=== PATIENT | male | born 1955 | race Caucasian/White ===

== ENCOUNTER 2017-01-09 05:40 | Day surgery (SDC) | payer OTHER ==
[2017-01-08 12:36] VITALS: BMI 26.7
--- NOTE | 2017-01-09 06:13 | HP ---
DATE OF ADMISSION: 01/09/2017 HISTORY OF PRESENT ILLNESS: This is a 61-year-old male with a history of hemorrhoids and rectal bleeding off and on. The patient had a colonoscopy and polypectomy more than 12 years ago. The patient has no specific GI symptoms. The patient comes in for a colonoscopy for colon cancer screening. ALLERGIES: SULFA. SOCIAL HISTORY: The patient does not smoke but drinks alcohol socially. PAST MEDICAL HISTORY: 1. Hypertension. 2. Hyperlipidemia. 3. Osteoarthritis. 4. Colon polyp. 5. Hemorrhoids. PAST SURGICAL HISTORY: 1. Has had a vasectomy. 2. Sinus balloon rhinoplasty. 3. Colon polyp. 4. Previous colonoscopy. PHYSICAL EXAMINATION: VITAL SIGNS: Pulse is 70, blood pressure 130/80. HEENT: Conjunctivae are clear. CARDIOVASCULAR SYSTEM: First and second heart sounds normal. LUNGS: Clear to auscultation. ABDOMEN: Soft to palpate. No organomegaly. No tenderness. No masses. ADMITTING DIAGNOSIS: A 61-year-old male comes for colonoscopy for colon cancer screening. ELMER
--- NOTE | 2017-01-09 09:17 | OP ---
DATE OF PROCEDURE: 01/09/2017 SURGEON: Price Cordon M.D. OPERATIVE PROCEDURE: Colonoscopy. PREOPERATIVE DIAGNOSES: A 61-year-old male with history of colon polyp several years ago. The patient has no specific GI symptoms. He comes for colonoscopy for colon cancer screening. POSTOPERATIVE DIAGNOSES: 1. Sigmoid diverticular disease. 2. Hemorrhoids. PROCEDURE IN DETAIL: The patient was placed on his left lateral position and was given sedation by Anesthesia Department. A rectal exam was done before the scope was advanced into the rectum. No le sions were felt on rectal exam. He does have external hemorrhoids. A Pentax video colonoscope was introduced into the rectum and advanced all the way into the cecum. The prep was excellent. The mu cosa appeared normal throughout the colon with normal vascular pattern. The appendiceal opening, il eocecal valve, and cecum, no pathology seen. The ascending colon, hepatic flexure, transverse colon , and splenic flexure, no pathology seen. The patient predominantly had left-sided diverticular dis ease in the sigmoid colon and also occasional diverticula in the descending colon. Retroflexion of the scope in the rectum showed hemorrhoids. DISCHARGE PLANNING: This is a 61-year-old male who came in for colonoscopy for [facility] and also has history of colon polyp. The colonoscopy showed predominantly left-sided d iverticular disease and hemorrhoids. DISCHARGE RECOMMENDATIONS: 1. High-fiber diet. 2. The patient advised to call me if he develops abdominal pain, hematochezia or fever. 3. Repeat colonoscopy in 10 years.
[2017-01-09] MEDS ORDERED: Propofol 200 MG/20 ML VIAL ONE (12:59)
[2017-01-09] MEDS ORDERED: Lidocaine 1% PF 5 ML VIAL ONE (12:59)
== END 2017-01-09 09:11 | disposition home or self-care (01) ==
LOC: SDC 05:40
PROVIDERS: ATTEND Internal Medicine Gastroenterology
PROC: 0DJD8ZZ Inspection of Lower Intestinal Tract, Via Natural or Artificial Opening Endoscopic (ICD-10-PCS; principal; 2017-01-09)
DX: Z12.11 Encounter for screening for malignant neoplasm of colon (principal); K57.30 Diverticulosis of large intestine without perforation or abscess without bleeding; K64.8 Other hemorrhoids; I10 Essential (primary) hypertension; E78.5 Hyperlipidemia, unspecified; M19.90 Unspecified osteoarthritis, unspecified site; Z88.2 Allergy status to sulfonamides; Z79.899 Other long term (current) drug therapy; Z98.52 Vasectomy status; Z98.890 Other specified postprocedural states; Z87.19 Personal history of other diseases of the digestive system
CPT/HCPCS: J2001; J2704

== ENCOUNTER 2017-03-07 12:49 | Outpatient (CLI) | payer OTHER ==
--- NOTE | 2017-03-07 16:16 | RAD ---
LUMBAR SPINE: 03/07/17 Four views. AP view obtained. Lateral views were obtained in neutral, extension and flexion positions . HISTORY: Lumbar spondylolisthesis. Comparison made to lumbar films of 09/20/16. There is mild anterolisthesis at L4-5 stable from prior exam. Mild degenerative osteophytes in the deandre mbar vertebrae. Mild facet hypertrophy at L4-5 and L5-S1. Disc spaces are relatively well preserved t hroughout and are unchanged. The anterolisthesis at L4-5 appears to exacerbate slightly with flexion. It is unchanged with extension. IMPRESSION: Mild anterolisthesis of L4-5 which appears to exacerbate slightly with flexion. There are degenerativ e changes as described. POS: [facility]
--- NOTE | 2017-03-07 16:58 | MRI ---
MRI LUMBAR SPINE NONCONTRAST: DATE: 03/07/17 HISTORY: 61-year-old male with M43.16 lumbar spondylolisthesis. Chronic low back pain with left lumbar r adiculopathy. COMPARISON: No prior MRIs. FINDINGS: Plain radiographic study from today demonstrates five lumbar type vertebrae inferior to the level wit h hypoplastic ribs which will be designated as T12 for the purposes of this report. There is minimal anterior wedging of L1 and T12. Otherwise, the vertebral body heights are maintained. The spinal gauri l is diffusely small in caliber on a congenital basis due to developmentally short pedicles. No major bone marrow signal abnormality. The L3-4 disc space is preserved, with normal disc signal. There is mild to moderate disc space narrowing at L4-5. There is mild disc space narrowing at all other levels . There are mild disc bulges at all levels. No large disc herniation. Severe bilateral degenerative f acet changes at L4-5. The findings regarding caliber of the spinal canal and neural foramina are as f ollows: T12-L1: No additional findings. L1-2: Conus medullaris terminates at lower L1. No additional findings. L2-3: Moderate central spinal canal stenosis, and a somewhat greater degree of thecal sac stenosis, d ue to mild disc bulge, mild degenerative posterior element hypertrophy, and posterior epidural fat pa d. Mild to moderate left neural foraminal stenosis. Minimal right neural foraminal stenosis. L3-4: Mild central spinal canal stenosis. Mild to moderate thecal sac stenosis due to posterior epidu ral fat pad. Mild to moderate bilateral neural foraminal stenosis. L4-5: The severe facet DJD causes a grade I anterolisthesis of L4 on L5. There is very severe central spinal canal stenosis with severe crowding of cauda equina. There is moderate bilateral neural denny inal stenosis, left worse than right. The lateral recess stenosis is extremely severe on the right an d severe on the left. L5-S1: No central stenosis. Moderate to severe bilateral degenerative facet changes. Bilateral modera te neural foraminal stenosis, less severe than L4-5. IMPRESSION: Very severe central spinal canal stenosis, very severe lateral recess stenosis bilaterally (right wor se than left), and moderate bilateral neural foraminal stenosis, at L4-5, due to a combination of gra de I spondylolisthesis which is due to severe facet osteoarthrosis, posterior element degenerative hy pertrophy, and diffuse disc bulge. MARIANNE Viera POS: [facility]
== END 2017-03-07 12:50 | disposition home or self-care (01) ==
LOC: TBSIIMAG 12:49
PROVIDERS: ATTEND Neurological Surgery
DX: M43.16 Spondylolisthesis, lumbar region (principal); M48.061 Spinal stenosis, lumbar region without neurogenic claudication; M47.26 Other spondylosis with radiculopathy, lumbar region; M51.16 Intervertebral disc disorders with radiculopathy, lumbar region
CPT/HCPCS: 72110; 72148

== ENCOUNTER 2017-03-21 08:07 | Outpatient (CLI) | payer OTHER ==
--- NOTE | 2017-03-21 09:26 | MRI ---
MRI LEFT KNEE WITHOUT CONTRAST: HISTORY: Torn meniscus (M25.562). COMPARISON: None. FINDINGS: Medial meniscus: Undersurface flap tear of the body and posterior horn of the medial meniscus with g utter extrusion of the undersurface flap fragment. Lateral meniscus: Intact. ACL and PCL are intact. MCL and LCL are intact. Extensor mechanism: The quadriceps tendon and patellar tendon are intact. Cartilage: There is a delaminating cartilage tear of the superior aspect of the medial patellar face t, extending to the patellar apex, with some subchondral edema. This measures approximately 6 mm tra nsverse x 9 mm craniocaudad dimension. Medial meniscus: There is a focal full-thickness cartilage defect of the posterior weight-bearing hart rface of the medial femoral condyle. This measures approximately 4 mm in transverse x 15 mm in AP di mension. No significant subchondral edema. Lateral compartment: There are few fissures of the central weightbearing surface of the lateral tibi al plateau, otherwise unremarkable. Muscles: Normal muscle signal and bulk. Soft tissues: No significant popliteal cyst formation. IMPRESSION: 1. Undersurface flap tear of the body and posterior horn medial meniscus with a gutter extrusion 2 m m of a flap fragment. The tear does extend to the posterior root attachment. 2. Focal nodular synovitis along the infrapatellar fat, extending along the anterior margin of the a nterior cruciate ligament. This measures approximately up to 1.5 cm in greatest dimension. 3. Focal area of cartilage delamination along the superior aspect of the medial patellar facet, exte nding to the patellar apex, measuring 6 mm in transverse x 9 mm in craniocaudad dimension. 4. Focal full-thickness cartilage defect, measuring 4 x 15 mm (transverse x AP), of the lateral-most aspect of the weightbearing surface medial femoral condyle. POS: [facility]
== END 2017-03-21 08:08 | disposition home or self-care (01) ==
LOC: TBSIIMAG 08:07
PROVIDERS: ATTEND Orthopaedic Surgery
DX: M25.562 Pain in left knee (principal); S83.242A Other tear of medial meniscus, current injury, left knee, initial encounter; M65.88 Other synovitis and tenosynovitis, other site; M24.10 Other articular cartilage disorders, unspecified site

== ENCOUNTER 2017-05-30 06:02 | Day surgery (SDC) | payer OTHER ==
[2017-05-29 08:58] VITALS: BMI 26.9
[2017-05-30] MEDS ORDERED: Midazolam HCl 2 mg/2 ml Vial ONE (06:24)
[2017-05-30] MEDS ORDERED: HYDROmorphone 0.5 MG/0.5 ML SYRINGE ONE (06:24)
[2017-05-30] MEDS ORDERED: PROPOFOL 20 ML ONE ×2 (06:52→06:53)
[2017-05-30] MEDS ORDERED: CEFAZOLIN/Water 2 GM/20 ML SYRINGE ONE (07:04)
[2017-05-30 07:06] LABS: Anion Gap 13 mmol/L (10-20); BUN (Urea Nitrogen) 21 mg/dL (8.4-25.7); Calc. Creatinine Clearance 88 mL/min (70-130); Calcium 9.6 mg/dL (7.8-10.44); Carbon Dioxide 25 mmol/L (23-31); Chloride 104 mmol/L (98-107); Estimated GFR-MDRD 74; Glucose 107 mg/dL (80-115); Potassium 3.7 mmol/L (3.5-5.1); Sodium 138 mmol/L (136-145)
[2017-05-30 07:11] LABS: #Eosinphils 0.2 thou/uL (0.0-0.7); #Monocytes 0.6 thou/uL (0.11-0.59); #Neutrophils 2.9 thou/uL (1.40-6.50); %Basophils 0.9 % (0.0-1.0); %Eosinophils 3.4 % (0.0-10.0); %Lymphocytes 34.5 % (21.0-51.0); %Monocytes 9.9 % (0.0-10.0); %Neutrophils 51.4 % (42.0-75.0); Hemoglobin 15.2 g/dL (14.0-18.0); Mean Corpuscular HGB CONC 33.6 g/dL (32.0-36.0); Mean Corpuscular Hemoglobin 33.4 pg (27.0-31.0); Mean Corpuscular Volume 99.6 fl (80.0-94.0); Mean Platelet Volume 6.2 fL (7.4-10.4); Platelet Count 190 thou/uL (130-400); RBC Distribution Width 11.3 % (11.5-14.5); Red Blood Cell (RBC) Count 4.54 mill/uL (4.70-6.10); White Blood Cell (WBC) Count 5.7 thou/uL (4.8-10.8)
[2017-05-30] MEDS ORDERED: Metoclopramide HCl 10 MG/2 ML VIAL ONE ×2 (07:36→13:39)
--- NOTE | 2017-05-30 09:03 | OP ---
DATE OF PROCEDURE: 05/30/2017 PREOPERATIVE DIAGNOSIS: Left knee medial meniscus tear. POSTOPERATIVE DIAGNOSES: 1. Complex tear including the body and posterior horn of the medial meniscus. 2. A cyst at the base of the anterior cruciate ligament at its insertion onto the tibia. PROCEDURES PERFORMED: 1. Left knee arthroscopy with partial medial meniscectomy. 2. Debridement and shaving of cyst. SURGEON: Gonzalo Story M.D. TOLL BRIDGE ATTENDANT: None. BLOOD LOSS: Minimal. COMPLICATIONS: None. He did have general anesthetic as well as a local knee block. CONDITION: He went to the recovery room in stable condition. INDICATIONS: Active 61-year-old male comes in complaining of catching and swelling in his knee. Yoli s has failed nonoperative treatment and at this time, he wished to have surgery. DESCRIPTION OF PROCEDURE: After all appropriate consent forms were explained and signed, he was take n to the operating room and at this time was given a general anesthetic. Once anesthesia was appropr iate, the tourniquet was placed on his left thigh. Leg was then placed in an arthroscopic leg fenton . The leg was then prepped and draped in standard surgical fashion. Limb was exsanguinated and tour niquet was taken up to 300 mmHg. An inferolateral portal was established and the scope was placed in to the knee joint. Needle localization technique was then used to make a medial working portal. Melody gnostic arthroscopy commenced in the notch. ACL and PCL probed and found to be intact. There was a cyst at the insertion of the ACL. This was debrided with the shaver. We then turned our attention t o the medial compartment. Overall, the cartilage on the medial femoral condyle and tibial plateau we re in good condition. There was a little bit of crabmeat appearance on the tibia. There was a compl ex tear of the body and posterior horn of the medial meniscus and a partial meniscectomy was performe d using meniscal biter and shaver. The lateral compartment was found to be intact. Gutters were swe pt through and no loose bodies noted and the patellofemoral joint was also found to be in good condit ion. At this time, scope was removed, the knee was drained. Portals closed with simple nylon stitch . Bulky sterile dressing was then applied, tourniquet let down. Toes pinked up nicely. The patient was awakened and he was taken to the recovery room in stable condition. All counts were correct at the end of the case and he did receive preoperative IV antibiotics.
[2017-05-30] MEDS ORDERED: Bupivacaine HCl 0.5%/Epinephrine 1:200,000/PF 30 ml Vial ONE (13:36)
[2017-05-30] MEDS ORDERED: Lidocaine 2% w/Epinephrine 1:200K 20 ML VIAL ONE (13:36)
[2017-05-30] MEDS ORDERED: PROPOFOL 200 MG/20 ML VIAL ONE (13:39)
[2017-05-30] MEDS ORDERED: Lidocaine 1% PF 5 ML VIAL ONE (13:39)
[2017-05-30] MEDS ORDERED: Dexamethasone 20 MG/5 ML VIAL ONE (13:39)
[2017-05-30] MEDS ORDERED: Ondansetron HCl/PF 4 MG/2 ML Vial ONE (13:39)
[2017-05-30] MEDS ORDERED: Ketorolac Tromethamine 30 MG/ML VIAL ONE (13:39)
[2017-05-30] MEDS ORDERED: diphenhydrAMINE 50 MG/ML VIAL ONE (13:39)
--- NOTE | 2017-06-05 20:04 | EKG ---
Test Reason : PREOP Blood Pressure : / mmHG Vent. Rate : 057 BPM Atrial Rate : 057 BPM P-R Int : 178 ms QRS Dur : 102 ms QT Int : 422 ms P-R-T Axes : 014 016 026 degrees QTc Int : 410 ms Sinus bradycardia Otherwise normal ECG When compared with ECG of 29-NOV-2011 07:23, No significant change was found Confirmed by JOE MCCARTHY ([id number]) on 06/05/2017 8:04:02 PM Referred By: ANTONIO Confirmed By:JOE MCCARTHY
== END 2017-05-30 10:40 | disposition home or self-care (01) ==
LOC: SDC 06:02
PROVIDERS: ATTEND Orthopaedic Surgery
DX: S83.232A Complex tear of medial meniscus, current injury, left knee, initial encounter (principal); M25.862 Other specified joint disorders, left knee; I10 Essential (primary) hypertension; E78.5 Hyperlipidemia, unspecified; Z79.899 Other long term (current) drug therapy; Z88.2 Allergy status to sulfonamides
CPT/HCPCS: 80048; 85025; 93005; 93010; G8978-GP-CI; G8979-GP-CI; G8980-GP-CI; J0131; J0670; J1100; J1170; J1200; J1885; J2001; J2250; J2405; J2704; J2765

== ENCOUNTER 2019-01-07 13:28 | Outpatient (CLI) | payer OTHER ==
--- NOTE | 2019-01-07 14:07 | RAD ---
EXAM: 4 views of the lumbosacral spine HISTORY: Spondylolisthesis of the lumbar spine COMPARISON: None FINDINGS: 4 views of the lumbosacral spine shows grade 1 anterolisthesis of L4 and L5. There is maria esther l height of the vertebral bodies and intervertebral discs without fracture or subluxation. Moderate degenerative changes are seen throughout the lumbar spine. Alignment is unchanged with flexion and e xtension. The sacroiliac joints are unremarkable. IMPRESSION: Grade 1 anterolisthesis of L4 on L5 with unchanged alignment with bending
== END 2019-01-07 13:29 | disposition home or self-care (01) ==
LOC: RAD 13:28
PROVIDERS: ATTEND Specialist
DX: M43.16 Spondylolisthesis, lumbar region (principal)
CPT/HCPCS: 72100

== ENCOUNTER 2019-04-29 06:48 | Day surgery (SDC) | payer OTHER ==
[2019-04-28 16:53] VITALS: BMI 27.1
--- NOTE | 2019-04-29 07:44 | HP ---
HISTORY OF PRESENT ILLNESS: This is a 63-year-old male, who comes for EGD with history of acid reflux and also history of dysphagia. The patient has had acid reflux for a few months. He has taken Nexium and pantoprazole for a few months. He started taking the medication few months ago. He has had fullness in the throat and occasional shortness of breath. He also has history of intermittent dysphagia to solid foods. The patient comes for EGD because of the above reason. ALLERGIES: SULFA. MEDICAL ILLNESSES: 1. Hypertension. 2. Hyperlipidemia. 3. Colon polyp. 4. Osteoarthritis. 5. Chronic acid reflux. PHYSICAL EXAMINATION: VITAL SIGNS: Pulse is 72, blood pressure 120/76, and weight is 194 pounds. HEENT: Conjunctivae are clear. CARDIOVASCULAR: First and second heart sounds heard. LUNGS: Clear to auscultation. ABDOMEN: Soft. No organomegaly. No tenderness. No masses. EXTREMITIES: Reveal no edema. ADMITTING DIAGNOSES: 1. Chronic acid reflux. 2. Dysphagia. PLAN: EGD. Job ID: [id number] [facility]
[2019-04-29] MEDS ORDERED: PROPOFOL 200 MG/20 ML VIAL ONE (11:49)
--- NOTE | 2019-04-29 13:59 | OP ---
DATE OF PROCEDURE: 04/29/2019 OPERATIVE PROCEDURES: 1. Esophagogastroduodenoscopy with biopsy. 2. Esophageal dilation with a 52-English Garduno dilator. PREOPERATIVE DIAGNOSES: 1. Chronic acid reflux. 2. Dysphagia. POSTOPERATIVE DIAGNOSES: 1. Normal vocal cords. 2. The esophagus does not show any esophagitis or any stricture. 3. Irregular Z-line. 4. Shallow ulcers x2 over the gastric antrum. DESCRIPTION OF PROCEDURE: The patient was placed on his left lateral position and the throat was anesthetized with Cetacaine spray, and the patient was given sedation by Anesthesia Department. A Pentax videogastroscope under direct vision passed down the oropharynx, past the GE junction, into the stomach and subsequently descending duodenum. Although, the patient complains of persistent acid reflux and also dysphagia, advanced the endoscopy. The esophagus lumen appeared open and also no esophagitis seen. The Z-line was irregular. Biopsy obtained of the area. There was no esophagitis or ulcerations. Retroflexion failed to show any pathology in the fundus or cardia. In the gastric body and gastric incisura, no lesion. Over the gastric antrum, close pyloric opening. There were 2 shallow ulcerations. In the duodenal bulb, descending duodenum, no lesion seen. Biopsy obtained of the gastric antrum and gastric body. The stomach decompressed and the scope was removed. Because of history of dysphagia, I directly passed a 52-English Garduno dilator. The dilator passed down with no resistance. Post dilation, the scope advanced back into the stomach. No complication was noted. The stomach decompressed and scope removed. DISCHARGE PLANNING: Mr. Murphy Olivera is a 63-year-old male, came for EGD because of dysphagia and chronic acid reflux. The EGD showed no esophageal stricture and no esophagitis. He did have 2 ulcerations in the gastric antrum. DISCHARGE RECOMMENDATION: 1. The patient as before. 2. Await gastric biopsy, and if biopsy shows Helicobacter, treat accordingly. 3. He is advised to call me for any chest discomfort, hematochezia, or melena. Job ID: [id number]
== END 2019-04-29 10:06 | disposition home or self-care (01) ==
LOC: SDC 06:48
PROVIDERS: ATTEND Internal Medicine Gastroenterology
PROC: 0DB68ZX Excision of Stomach, Via Natural or Artificial Opening Endoscopic, Diagnostic (ICD-10-PCS; principal; 2019-04-29)
PROC: 0D757ZZ Dilation of Esophagus, Via Natural or Artificial Opening (ICD-10-PCS; principal; 2019-04-29)
PROC: 0DB58ZX Excision of Esophagus, Via Natural or Artificial Opening Endoscopic, Diagnostic (ICD-10-PCS; principal; 2019-04-29)
DX: K29.50 Unspecified chronic gastritis without bleeding (principal); K21.9 Gastro-esophageal reflux disease without esophagitis; I10 Essential (primary) hypertension; E78.5 Hyperlipidemia, unspecified; M19.90 Unspecified osteoarthritis, unspecified site; Z88.2 Allergy status to sulfonamides
CPT/HCPCS: 88305; 88312; 88313; J2704

== ENCOUNTER 2023-06-15 10:32 | Outpatient (CLI) | payer MEDICARE, OTHER ==
[2023-06-15 11:52] LABS: #Basophils 0.03 10x3/uL (0.0-0.2); #Eosinphils 0.12 10x3/uL (0.0-0.5); #Monocytes 0.43 10x3/uL (0.0-1.1); #Neutrophils 2.19 10x3/uL (1.5-8.4); %Basophils 0.7 % (0.0-2.0); %Monocytes 10.7 % (0.0-10.0); %Neutrophils 54.4 % (40.0-75.0); Hematocrit 37.2 % (38.8-50.0); Hemoglobin 11.7 g/dL (13.5-17.5); Mean Corpuscular HGB CONC 31.5 g/dL (32.0-36.0); Mean Corpuscular Hemoglobin 25.5 pg (27.0-33.0); Mean Corpuscular Volume 81.2 fl (81.2-95.1); Platelet Count 250 10x3/uL (150-450); RBC Distribution Width 15.5 % (11.5-14.5); Red Blood Cell (RBC) Count 4.58 10x6/uL (4.32-5.72)
[2023-06-15 12:10] LABS: Anion Gap 13 mmol/L (10-20); BUN (Urea Nitrogen) 14 mg/dL (8.4-25.7); Calc. Creatinine Clearance 0 mL/min (70-130); Calcium 9.3 mg/dL (7.8-10.44); Carbon Dioxide 25 mmol/L (23-31); Chloride 105 mmol/L (98-107); Estimated GFR 82; Glucose 107 mg/dL (80-115); Potassium 4.2 mmol/L (3.5-5.1); Sodium 139 mmol/L (136-145)
== END 2023-06-15 10:33 | disposition home or self-care (01) ==
LOC: LABBT 10:32
PROVIDERS: ATTEND Specialist
DX: Z01.818 Encounter for other preprocedural examination (principal); K64.9 Unspecified hemorrhoids
CPT/HCPCS: 71046; 80048; 85025; 93005; 93010